=== PATIENT | female | born 1990 | race Caucasian/White ===

== ENCOUNTER 2020-11-02 15:17 | Emergency (ER) | payer OTHER, SELFPAY ==
--- NOTE | ~2020-11-02 | XR_ITS ---
XR ankle LT min 3V 11/02/2020 16:02 INDICATION: Left ankle pain PROCEDURE: 4 views left ankle COMPARISON: No prior studies for comparison. FINDINGS: Fracture, dislocation or subluxation is not identified. Ankle mortise intact. Talar dome wi thin normal limits. The soft tissues appear within normal limits. No foreign bodies are identified. IMPRESSION: 1: NO ACUTE BONE OR JOINT ABNORMALITY IDENTIFIED. Reviewed, dictated and finalized at location B.
[2020-11-02 15:31] VITALS: BP 127/76; PULSE 75; RESP 16; TEMP 36.4; O2SAT 100
--- NOTE | 2020-11-02 15:43 | ED.LOWEXIN ---
HPI - Extremity Injury (Lower) General Chief Complaint: Extremity Injury, Lower Stated Complaint: Left ankle Pain Time Seen by Provider: 11/02/20 15:45 Source: patient, RN notes reviewed and old records reviewed History of Present Illness HPI Narrative: 29 year old female who presents to [facility] care with complaints of pain to her lateral ankle for the past few weeks. Patient states that at the end of September while on vacation she was wearing flip flops and slipped on granite steps initially injuring her left lateral ankle. She states that she had swelling and bruising but was getting better then she ran a half marathon on the 16 of October and has has a lot of swelling and pain to the left lateral ankle again. Reports that she has been seeing a Chiropractor who does taping for injuries with minimal decrease in her discomfort over the past 2 weeks. Patient has point tenderness to area below lateral malleolus with some edema present. MD complaint: ankle injury Onset (ago): day(s) Injury: Left: ankle Type of Injury: other (initial injury fall then running) Place: street/outdoors Severity: moderate Severity scale (1-10): 4 Relieving factors: cold therapy, rest and other (taping) Exacerbating factors: weight bearing, movement and palpation Treatments prior to arrival: cold therapy, NSAIDS and other (taping) Related Data Home Medications Medication Instructions Recorded Confirmed escitalopram oxalate 10 mg PO DAILY 11/02/20 11/05/20 norethindrone-e.estradiol-iron [Lo 1 tablet PO DAILY 11/02/20 11/05/20 Loestrin Fe] spironolactone 100 mg PO DAILY 11/02/20 11/05/20 Allergies Allergy/AdvReac Type Severity Reaction Status Date / Time clarithromycin Allergy Unknown Itching Verified 11/04/20 15:45 Penicillins Allergy Unknown Itching Verified 11/04/20 15:45 Review of Systems Review of Systems: Narrative: CONSTITUTIONAL: Denies fever, chills, or sweats. EYES: Denies visual changes, redness, or discharge. ENT: Denies rhinorrhea, congestion, sore throat, or otalgia. CARDIOVASCULAR: Denies chest pain, palpitations, or edema. RESPIRATORY: Denies cough or dyspnea. GASTROINTESTINAL: Denies abdominal pain, nausea, vomiting, or diarrhea. GENITOURINARY: Denies dysuria or hematuria. SKIN: Denies rash or itching. MUSCULOSKELETAL: Denies back pain,positive for left lateral ankle joint pain, or myalgia. NEUROLOGIC: Denies headache, numbness, or weakness. PSYCHIATRIC: Positive history of anxiety or depression. All systems reviewed & are unremarkable except as noted in HPI and below PMFSH Past Medical History Medical History (Updated 11/06/20 @ 18:40 by Thalia Clayton NP) Anxiety Surgical History Surgical History (Updated 11/04/20 @ 15:45 by Carlee Adams) Hx of appendectomy (~1999) Social History Social History (Updated 11/02/20 @ 15:48 by Thalia Clayton NP) Smoking status: Never smoker Alcohol intake: current Comments At time of signature, agree with nursing past medical, surgical, social and family history. There is no relevant family history pertinent to the presenting complaint Exam Narrative: Exam Narrative: GENERAL: Well-appearing, well-nourished, and in no acute distress. HEAD: Normocephalic, atraumatic. EYES: PERRLA and EOMI. ENT: Nares clear, no rhinorrhea or epistaxis. Mucous membranes moist. NECK: Supple.no lymphadenopathy CHEST: Clear to auscultation. No respiratory distress.SAO2 100% on room air HEART: Regular rate and rhythm. No murmur heard. Normal peripheral pulses. ABDOMEN: Soft, nontender, nondistended, normal active bowel sounds. EXTREMITIES: Normal range of motion. No edema. with exception to lateral aspect of left ankle with point tenderness to tissue below lateral malleolus, Negative Cabello test.Circulation and sensation intact to left foot with strong pulses to foot. SKIN: Warm, dry, no rash. NEURO: No focal deficits. Alert and oriented x3. Course Vital Signs Vital signs: Vital Signs
[2020-11-02 15:50] VITALS: BP 127/76; PULSE 75; RESP 16; TEMP 36.4; O2SAT 100
== END 2020-11-02 16:28 | disposition home or self-care (01) ==
PROVIDERS: Emergency Provider Registered Nurse; PCP Family Medicine
DX: S93.402A Sprain of unspecified ligament of left ankle, initial encounter (principal); S96.912A Strain of unspecified muscle and tendon at ankle and foot level, left foot, initial encounter; X58.XXXA Exposure to other specified factors, initial encounter
CPT/HCPCS: 73610; 99203; G0463

== ENCOUNTER 2020-11-13 13:28 | Outpatient (CLI) | payer OTHER, SELFPAY ==
--- NOTE | ~2020-11-13 | MR_ITS ---
EXAMINATION: MR ankle LT wo con DATE: 11/13/2020 14:28 INDICATION: Left ankle pain. TECHNIQUE: Magnetic resonance imaging (MRI) of the left ankle was performed without intravenous contr ast. Sequences included sagittal PD-weighted FS FSE, sagittal PD-weighted FSE, coronal PD-weighted FS FSE, coronal PD-weighted FSE, axial PD-weighted FS FSE, and axial PD-weighted FSE. COMPARISON: Left ankle radiographs 11/02/2020 FINDINGS: Medial ankle ligaments: The superficial and deep components of the deltoid ligament are normal. Lateral ankle ligaments: There are changes of prior sprains of anterior talofibular ligament and anterior tibiofibular ligamen t characterized by increased signal intensity. Calcaneofibular ligament, posterior talofibular ligame nt, and posterior tibiofibular ligament are normal. Tendons: Achilles tendon and the medial and anterior ankle tendons are normal. The peroneal tendons are normal . There is a skin marker superficial to the peroneal tendons. Plantar fascia: Normal. Bones/other: Bone alignment is normal. No fracture. The cartilage is normal. The musculature is normal. Fluid: There is no joint effusion. IMPRESSION: 1. Changes of lateral ankle sprain. Reviewed, dictated and finalized at location A.
== END 2020-11-13 13:29 | disposition home or self-care (01) ==
PROVIDERS: PCP Family Medicine; Visit Provider Orthopaedic Surgery
DX: M25.572 Pain in left ankle and joints of left foot (principal)
CPT/HCPCS: 73721

== ENCOUNTER 2021-05-17 18:59 | Emergency (ER) | payer OTHER, SELFPAY ==
--- NOTE | ~2021-05-17 | XR_ITS ---
EXAMINATION: XR ankle RT min 3V EXAM DATE: 05/17/2021 19:21 INDICATION: Initial encounter following injury, with pain of the right ankle. TECHNIQUE: Right ankle frontal, lateral and oblique projections obtained and reviewed. There is no p rior study for comparison. FINDINGS: The right ankle mortise appears intact. There are no acute fractures or dislocations iden tified. There is no subcutaneous gas. The soft tissue is unremarkable. There are no radiopaque fo reign bodies. IMPRESSION: No acute osseous findings. Reviewed, dictated and finalized at location A. 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
[2021-05-17 19:12] VITALS: BP 130/78; PULSE 84; RESP 16; TEMP 36.2; O2SAT 100
--- NOTE | 2021-05-17 19:54 | ED.LOWEXIN ---
HPI - Extremity Injury (Lower) General Chief Complaint: Extremity Injury, Lower Stated Complaint: Right ankle Pain History of Present Illness HPI Narrative: This is a 30-year-old female presents to urgent care complaining of right ankle pain states that she was walking the dog and she flipped over a root and she twisted her ankle hurting really bad. Related Data Home Medications Medication Instructions Recorded Confirmed escitalopram oxalate 10 mg PO DAILY 11/02/20 05/17/21 norethindrone-e.estradiol-iron [Lo 1 tablet PO DAILY 11/02/20 05/17/21 Loestrin Fe] spironolactone 100 mg PO DAILY 11/02/20 05/17/21 Allergies Allergy/AdvReac Type Severity Reaction Status Date / Time clarithromycin Allergy Unknown Itching Verified 05/17/21 19:38 Penicillins Allergy Unknown Itching Verified 05/17/21 19:38 Review of Systems Review of Systems: Right ankle pain All systems reviewed & are unremarkable except as noted in HPI and below PMFSH Past Medical History Medical History (Updated 05/18/21 @ 00:02 by Jaime Weiner) Anxiety Surgical History Surgical History (Updated 11/04/20 @ 15:45 by Carlee Adams) Hx of appendectomy (~1999) Social History Social History (Updated 11/02/20 @ 15:48 by Thalia Clayton NP) Smoking status: Never smoker Alcohol intake: current Alcohol use details: social Comments At time as signature, I have reviewed and agree with nursing past medical, social, surgical and family history. Please see nursing chart for further information. There is no relevant family history pertinent to the presenting complaint. Exam Narrative: GENERAL:Well-appearing, well-nourished, and in no acute distress. HEAD:Normocephalic, atraumatic. EYES: PERRLA ENT: Nares clear, no rhinorrhea or epistaxis. Mucous membranes moist. CHEST: Clear to auscultation. No respiratory distress. HEART: Regular rate and rhythm. EXTREMITIES: Decreased range of motion due to pain. Right foot lateral outer edema. SKIN: Warm, dry, no rash. NEURO: No focal deficits. Alert and oriented x3. Course Course Emergency Course: X-rays negative Vital Signs Vital signs: Vital Signs Temperature 97.2 F L 05/17/21 19:12 Pulse Rate 84 05/17/21 19:12 Respiratory Rate 16 05/17/21 19:12 Blood Pressure 130/78 05/17/21 19:12 Pulse Oximetry 100 05/17/21 19:12 Temperature 97.2 F L 05/17/21 19:12 Pulse Rate 84 05/17/21 19:12 Respiratory Rate 16 05/17/21 19:12 Blood Pressure 130/78 05/17/21 19:12 Pulse Oximetry 100 05/17/21 19:12 Discharge Plan Discharge Clinical Impression: Ankle sprain and strain Patient Disposition: Home, Self-Care Condition: Stable Instructions: Antibiotic Form, Ankle Sprain (ED) Additional Instructions: Avoid weight bearing until the pain subsides. Ice to the area 20-30 minutes 4-6 times a day Elevate above heart Elastic wrap or orthopedic splint as directed for comfort for the next 5-7 days Crutches as directed if needed Tylenol for lesser pain Ibuprofen regularly for the next 2-3 days for the inflammation Follow up with your primary care provider if the condition is not improving within 1 week or sooner if the condition worsens with numbness, tingling, decrease sensation with weakness to seek ER. [facility] [address], [place], [place] [id number]: [phone] Prescriptions: No Action spironolactone 100 mg tablet 100 mg PO DAILY RF: 0 escitalopram oxalate 10 mg tablet 10 mg PO DAILY RF: 0 Lo Loestrin Fe 1 mg-10 mcg (24)/10 mcg (2) tablet 1 tablet PO DAILY RF: 0 Follow-up/Referrals: Belkis,Lindsey Keller MD [Primary Care Provider] - Stand Alone Forms: Work/School Release IP Time of Disposition: 19:56
== END 2021-05-17 20:00 | disposition home or self-care (01) ==
PROVIDERS: Emergency Provider Nurse Practitioner Family; PCP Family Medicine
DX: S93.401A Sprain of unspecified ligament of right ankle, initial encounter (principal); S96.911A Strain of unspecified muscle and tendon at ankle and foot level, right foot, initial encounter; X50.0XXA Overexertion from strenuous movement or load, initial encounter; Y93.01 Activity, walking, marching and hiking; F41.9 Anxiety disorder, unspecified
CPT/HCPCS: 73610; 99213; G0463